=== PATIENT | female | born 1965 ===

== ENCOUNTER 2019-12-16 05:15 | Day surgery (SDC) | payer OTHER ==
[~2019-12-16 05:15] MED LIST: HORIZANT300 MG PO; NABUMETONE500 MG PO; PERCOCET 5/3251 TAB PO
== END 2019-12-16 12:00 | disposition home or self-care (01) ==
LOC: CIR.AMB 05:15 → AMB-ENDOS 14:15 → CIR.AMB 14:15
DX: L82.0 Inflamed seborrheic keratosis (principal)